=== PATIENT | male | born 1955 | race Caucasian/White ===

== ENCOUNTER 2018-01-03 13:33 | Emergency (ER) | payer OTHER ==
[2018-01-03 14:00] VITALS: BP 133/64
--- NOTE | 2018-01-03 14:13 | UC ---
Respiratory Complaint HPI - HPI Summary HPI Summary: Pt c/o sudden chest congestion, cough, sob , generalized malaise and fatigue. - History of Current Complaint Hx Obtained From: Patient Onset/Duration: Sudden Onset, Lasting Days, Still Present, Worse Since - osnet Timing: Constant Severity Initially: Mild Severity Currently: Moderate Pain Intensity: 8 Character: Cough: Nonproductive Aggravating Factors: Exertion, Deep Breaths, Recumbent Position Alleviating Factors: Nothing Associated Signs And Symptoms: Positive: Fever, Chills, Wheezing, URI, Nasal Congestion - Risk Factors Pulmonary Embolism Risk Factors: Recent Travel Cardiac Risk Factors: Hypertension Pseudomonas Risk Factors: Negative Tuberculosis Risk Factors: Negative <Sunshine Lau NP - Last Filed: 01/03/18 14:50> <Ezequiel Daniel - Last Filed: 01/04/18 15:02> - History of Current Complaint Chief Complaint: UCGeneralIllness Stated Complaint: COUGH FEVER CHILLS Time Seen by Provider: 01/03/18 14:01 - Allergies/Home Medications Allergies/Adverse Reactions: Allergies Allergy/AdvReac Type Severity Reaction Status Date / Time No Known Allergies Allergy Verified 04/11/14 14:10 Home Medications: Home Medications Blood Pressure Med 1 each PO DAILY 01/03/18 [History Confirmed 01/03/18] Cholecalciferol TAB* [Vitamin D TAB*] 1,000 units PO DAILY 01/03/18 [History Confirmed 01/03/18] High Cholesterol Med 1 each PO DAILY 01/03/18 [History Confirmed 01/03/18] Ubidecarenone [Co Q-10] 1 each PO DAILY 01/03/18 [History Confirmed 01/03/18] PMH/Surg Hx/FS Hx/Imm Hx Previously Healthy: Yes Cardiovascular History: Hypertension - Surgical History Surgical History: Yes Surgery Procedure, Year, and Place: Right Rotator Cuff Repair. LOWER JAW ORIF - Family History Known Family History: Positive: Cardiac Disease - Social History Occupation: Employed Full-time Lives: With Family Alcohol Use: Occasionally Substance Use Type: None Smoking Status (MU): Former Smoker Have You Smoked in the Last Year: No When Did the Patient Quit Smoking/Using Tobacco: 2002 <Sunshine Lau NP - Last Filed: 01/03/18 14:50> Review of Systems Constitutional: Fever, Chills, Fatigue Skin: Negative Eyes: Negative ENT: Negative Respiratory: Shortness Of Breath, Cough Cardiovascular: Negative Gastrointestinal: Negative Genitourinary: Negative Motor: Negative Neurovascular: Negative Musculoskeletal: Negative Neurological: Weakness Psychological: Negative Is Patient Immunocompromised?: No All Other Systems Reviewed And Are Negative: Yes <Sunshine Lau NP - Last Filed: 01/03/18 14:50> Physical Exam Triage Information Reviewed: Yes Appearance: Ill-Appearing Vital Signs: Initial Vital Signs Temp 99.7 F 01/03/18 13:54 Pulse 66 01/03/18 13:54 Resp 14 01/03/18 13:54 BP 133/64 01/03/18 13:54 Pulse Ox 99 01/03/18 13:54 Vital Signs Reviewed: Yes Eye Exam: Normal ENT: Positive: Nasal congestion Dental Exam: Normal Neck exam: Normal Respiratory Exam: Other Respiratory: Positive: Decreased breath sounds, Wheezing Cardiovascular Exam: Normal Musculoskeletal Exam: Normal Neurological Exam: Normal Psychological Exam: Normal Skin Exam: Normal <Sunshine Lau NP - Last Filed: 01/03/18 14:50> Vital Signs: Initial Vital Signs Temp 99.7 F 01/03/18 13:54 Pulse 66 01/03/18 13:54 Resp 14 01/03/18 13:54 BP 133/64 01/03/18 13:54 Pulse Ox 99 01/03/18 13:54 <Ezequiel Daniel - Last Filed: 01/04/18 15:02> UC Diagnostic Evaluation - Laboratory O2 Sat by Pulse Oximetry: 99 - Radiology Radiology Interpretation Completed By: Radiologist - IMPRESSION: NO ACTIVE DISEASE. <Sunshine Lau NP - Last Filed: 01/03/18 14:50> Respiratory Course/Dx - Differential Dx/Diagnosis Differential Diagnosis/HQI/PQRI: Bronchitis, Other - penumonia Provider Diagnoses: bronchitis <Sunshine Lau NP - Last Filed: 01/03/18 14:50> Discharge - Sign-Out/Discharge Documenting (check all that apply): Discharge/Admit/Transfer - Billing Disposition and Condition Condition: STABLE Disposition: Home <Sunshine Lau NP - Last Filed: 01/03/18 14:50> - Billing Disposition and Condition Condition: STABLE Disposition: Home <Ezequiel Daniel - Last Filed: 01/04/18 15:02> - Discharge Plan Condition: Stable Disposition: HOME Prescriptions: Albuterol HFA INHALER* [Ventolin HFA Inhaler*] 1 - 2 puff INH Q6H PRN #1 mdi PRN Reason: Sob/Wheezing Azithromycin TAB* [Zithromax TAB (Z-JESI) 250 mg #6 tabs] 2 tab PO .TODAY, THEN 1 DAILY #1 jesi predniSONE TAB* [Deltasone 10 MG TAB*] 30 mg PO DAILY #12 tab Patient Education Materials: Acute Bronchitis (ED) Forms: *Work Release Referrals: Michael Magana MD [Primary Care Provider] - If Needed Additional Instructions: Per institutional requirements, I have reviewed the chart, however, I was not consulted specifically or made aware of this patient by the above midlevel provider. I did not personally evaluate, interact with , or disposition this patient. Please note this patient was discharged 20 minutes after my shift ended.
--- NOTE | 2018-01-03 14:34 | RAD ---
INDICATION: Cough. Short of breath COMPARISON: None TECHNIQUE: PA and lateral dual-energy views were obtained. FINDINGS: Bones/Soft Tissues: There are no acute bony findings. There is mild kyphoscoliosis Cardiomediastinal: The cardiomediastinal silhouette is normal. Lungs: There are no infiltrates. Pleura: There are no pleural effusions. Other: None IMPRESSION: NO ACTIVE DISEASE.
== END 2018-01-03 14:52 | disposition home or self-care (01) ==
LOC: UCCORT 13:33
DX: J40 Bronchitis, not specified as acute or chronic (principal); Z87.891 Personal history of nicotine dependence
CPT/HCPCS: 71046; 99212; G0463